=== PATIENT | male | born 1970 | race Caucasian/White ===

== ENCOUNTER → 2021-08-31 | Day surgery (SDC) | payer OTHER ==
[~2021-08-31] VITALS: Ht 180.3 cm; Wt 122.5 kg
[~2021-08-31] MED LIST: BACLOFEN10 MG PO; COLESTIPOL HCL1 GM PO
[2021-08-31 08:28] LABS: HCT 47.6 % (42.0-52.0); HGB 16.3 g/dl (13.2-18.0); MCH 30.5 pg (25.0-31.0); MCHC 34.2 g/dL (32.0-36.0); MPV 10.1 fL (6.0-9.5); RBC 5.35 M/uL (4.70-6.00); RDW 12.7 % (11.5-14.0); WBC 6.2 K/uL (4.0-10.5)
[2021-08-31 08:33] LABS: ALBUMIN 4.1 g/dL (3.4-5.0); BILIRUBIN - TOTAL 1.9 mg/dL (0.2-1.0); BUN/CREAT RATIO (CALC) 12.4 RATIO; CREATININE 0.97 mg/dL (0.67-1.17); GLOBULIN (CALCULATION) 3.4 g/dL; POTASSIUM 3.9 mmol/L (3.5-5.1); TOTAL PROTEIN 7.5 g/dL (6.4-8.2)
== END | disposition home or self-care (01) ==
LOC: FAS 07:31
PROVIDERS: Surgery
DX: K92.1 Melena (principal); D12.3 Benign neoplasm of transverse colon; D12.6 Benign neoplasm of colon, unspecified; K58.0 Irritable bowel syndrome with diarrhea; Z80.0 Family history of malignant neoplasm of digestive organs; Z20.822 Contact with and (suspected) exposure to COVID-19
CPT/HCPCS: 36415; 80053; J1610; J2250; J2704; J7120; U0002